=== PATIENT | female | born 1985 | race American Indian/Alaskan Native ===

== ENCOUNTER 2017-09-20 09:46 | Outpatient (CLI) | payer OTHER | END 2017-09-20 10:40 | disposition home or self-care (01) | LOC: NST 09:46 | DX: Z34.83 Encounter for supervision of other normal pregnancy, third trimester (principal) ==

== ENCOUNTER 2017-09-26 09:05 | Inpatient (IN) | payer OTHER ==
[~2017-09-26] VITALS: Ht 152.4 cm; Wt 67.1 kg
[2017-09-26] MEDS ORDERED: ASA81 MG PO (18:10)
[2017-09-26] MEDS ORDERED: PRENATAL 19 TA1 EACH PO (18:10)
== END 2017-10-02 13:07 | DRG 781 ==
LOC: OB/GYN 09:05 → LDR 09:05 → OB/GYN 09-27 14:52
PROC: BW40ZZZ Ultrasonography of Abdomen (ICD-10-PCS; principal; 2017-09-26)
PROC: 4A1HXCZ Monitoring of Products of Conception, Cardiac Rate, External Approach (ICD-10-PCS; 2017-09-26)
DX: O99.613 Diseases of the digestive system complicating pregnancy, third trimester (principal); K80.50 Calculus of bile duct without cholangitis or cholecystitis without obstruction; R74.8 Abnormal levels of other serum enzymes

== ENCOUNTER 2017-10-11 14:51 | Outpatient (CLI) | payer OTHER ==
[~2017-10-11 14:51] MED LIST: ASA81 MG PO; PRENATAL 19 TA1 EACH PO
== END 2017-10-11 17:26 | disposition home or self-care (01) ==
LOC: NST 14:51
DX: Z34.83 Encounter for supervision of other normal pregnancy, third trimester (principal)

== ENCOUNTER 2017-10-18 12:43 | Outpatient (CLI) | payer OTHER | END 2017-10-18 13:39 | disposition home or self-care (01) | LOC: NST 12:43 | DX: Z34.83 Encounter for supervision of other normal pregnancy, third trimester (principal) ==

== ENCOUNTER 2017-11-01 09:50 | Outpatient (CLI) | payer OTHER | END 2017-11-01 10:39 | disposition home or self-care (01) | LOC: NST 09:50 | DX: Z34.83 Encounter for supervision of other normal pregnancy, third trimester (principal) ==

== ENCOUNTER 2017-11-21 10:20 | Inpatient (IN) | payer OTHER ==
[~2017-11-21] VITALS: Ht 152.4 cm; Wt 68.5 kg
[2017-11-21] MEDS ORDERED: ACTIGALL300 MG PO (11:41)
== END 2017-11-24 12:43 | disposition home or self-care (01) | DRG 766 ==
LOC: LDR 10:20 → OB/GYN 15:16
PROVIDERS: Obstetrics & Gynecology
PROC: 4A033R1 Measurement of Arterial Saturation, Peripheral, Percutaneous Approach (ICD-10-PCS; 2017-11-21)
PROC: 4A1HXCZ Monitoring of Products of Conception, Cardiac Rate, External Approach (ICD-10-PCS; 2017-11-21)
PROC: 10D00Z1 Extraction of Products of Conception, Low, Open Approach (ICD-10-PCS; principal; 2017-11-21 14:00)
DX: O60.14X0 Preterm labor third trimester with preterm delivery third trimester, not applicable or unspecified (principal); O14.14 Severe pre-eclampsia complicating childbirth; O24.420 Gestational diabetes mellitus in childbirth, diet controlled; Z3A.36 36 weeks gestation of pregnancy; Z37.0 Single live birth

== ENCOUNTER 2019-04-22 07:58 | Inpatient (IN) | payer OTHER ==
[~2019-04-22] VITALS: Ht 152.4 cm; Wt 57.6 kg
[~2019-04-22 07:58] MED LIST changes: +ACTIGALL300 MG PO
== END 2019-04-27 15:24 | DRG 742 ==
LOC: CIR.AMB 07:58 → OB/GYN 13:48 → O/R 13:48 → OB/GYN 14:38
PROVIDERS: Urology; ADMIT Obstetrics & Gynecology
PROC: 0TQB0ZZ Repair Bladder, Open Approach (ICD-10-PCS; 2019-04-22)
PROC: 0TBB0ZZ Excision of Bladder, Open Approach (ICD-10-PCS; 2019-04-22)
PROC: 0UT00ZZ Resection of Right Ovary, Open Approach (ICD-10-PCS; principal; 2019-04-22 08:30)
PROC: 0DTU0ZZ Resection of Omentum, Open Approach (ICD-10-PCS; 2019-04-22 08:30)
DX: N83.01 Follicular cyst of right ovary (principal); N99.72 Accidental puncture and laceration of a genitourinary system organ or structure during other procedure; N83.291 Other ovarian cyst, right side; N94.19 Other specified dyspareunia; N73.6 Female pelvic peritoneal adhesions (postinfective)

== ENCOUNTER 2020-01-11 16:45 | Outpatient (CLI) | payer OTHER | END 2020-01-11 17:45 | disposition home or self-care (01) | LOC: NST 16:45 | PROVIDERS: ATTEND Obstetrics & Gynecology Maternal & Fetal Medicine | DX: Z34.83 Encounter for supervision of other normal pregnancy, third trimester (principal) ==

== ENCOUNTER 2020-01-19 09:30 | Outpatient (CLI) | payer OTHER | END 2020-01-19 10:30 | disposition home or self-care (01) | LOC: NST 09:30 | PROVIDERS: ATTEND Obstetrics & Gynecology | DX: Z34.83 Encounter for supervision of other normal pregnancy, third trimester (principal) ==

== ENCOUNTER → 2020-01-25 | Outpatient (CLI) | payer OTHER | END | disposition home or self-care (01) | LOC: NST 14:39 | PROVIDERS: ATTEND Obstetrics & Gynecology | DX: Z34.83 Encounter for supervision of other normal pregnancy, third trimester (principal) ==

== ENCOUNTER 2020-02-01 13:47 | Outpatient (CLI) | payer OTHER | END 2020-02-01 18:13 | disposition home or self-care (01) | LOC: NST 13:47 → LDR 16:50 → NST 16:50 | PROVIDERS: ATTEND Obstetrics & Gynecology Maternal & Fetal Medicine | DX: Z34.83 Encounter for supervision of other normal pregnancy, third trimester (principal) ==

== ENCOUNTER → 2020-02-05 | Outpatient (CLI) | payer OTHER ==
[~2020-02-05] MED LIST changes: +CHILDREN'S ASPI81 MG PO; +NIFE60TA3 PO
== END | disposition home or self-care (01) ==
LOC: NST 13:41
PROVIDERS: ATTEND Obstetrics & Gynecology Maternal & Fetal Medicine
DX: Z34.83 Encounter for supervision of other normal pregnancy, third trimester (principal)

== ENCOUNTER 2020-02-08 10:03 | Outpatient (CLI) | payer OTHER ==
[~2020-02-08 10:03] MED LIST changes: -CHILDREN'S ASPI81 MG PO; -NIFE60TA3 PO
== END 2020-02-08 11:21 | disposition home or self-care (01) ==
LOC: NST 10:03
PROVIDERS: ATTEND Obstetrics & Gynecology
DX: Z34.83 Encounter for supervision of other normal pregnancy, third trimester (principal)

== ENCOUNTER 2020-02-10 00:13 | Inpatient (IN) | payer OTHER ==
[~2020-02-10] VITALS: Ht 152.4 cm; Wt 2.3 kg
[2020-02-10] MEDS ORDERED: CHILDREN'S ASPI81 MG PO (02:09)
[2020-02-10] MEDS ORDERED: NIFE60TA3 PO (02:10)
[2020-02-13] MEDS ORDERED: KETO10TA2 PO (10:28)
[2020-02-13] MEDS ORDERED: OXYC1TAB9 PO (10:29)
== END 2020-02-13 17:33 | disposition home or self-care (01) | DRG 787 ==
LOC: LDR 00:13 → O/R 00:13 → OB/GYN 14:26
PROVIDERS: ADMIT Obstetrics & Gynecology Maternal & Fetal Medicine; ATTEND Obstetrics & Gynecology Maternal & Fetal Medicine
PROC: 0DNW0ZZ Release Peritoneum, Open Approach (ICD-10-PCS; 2020-02-10)
PROC: 0DQ80ZZ Repair Small Intestine, Open Approach (ICD-10-PCS; 2020-02-10)
PROC: 4A1HXFZ Monitoring of Products of Conception, Cardiac Rhythm, External Approach (ICD-10-PCS; 2020-02-10)
PROC: 3E033VJ Introduction of Other Hormone into Peripheral Vein, Percutaneous Approach (ICD-10-PCS; 2020-02-10)
PROC: 10D00Z1 Extraction of Products of Conception, Low, Open Approach (ICD-10-PCS; principal; 2020-02-10 13:30)
DX: O34.211 Maternal care for low transverse scar from previous cesarean delivery (principal); S36.438A Laceration of other part of small intestine, initial encounter; K91.72 Accidental puncture and laceration of a digestive system organ or structure during other procedure; Z20.828 Contact with and (suspected) exposure to other viral communicable diseases; Z3A.36 36 weeks gestation of pregnancy; Z37.0 Single live birth; Y65.8 Other specified misadventures during surgical and medical care; N73.6 Female pelvic peritoneal adhesions (postinfective)